=== PATIENT | male | born 1975 | race Caucasian/White ===

== ENCOUNTER 2023-11-18 18:09 | Emergency (ER) | payer OTHER ==
[~2023-11-18] VITALS: Ht 188 cm; Wt 72.6 kg
[~2023-11-18 18:09] MED LIST: ATOM40CA PO; MIRT-119 PO
[2023-11-18] MEDS ORDERED: NAPR-1009 PO (21:03)
[2023-11-18] MEDS ORDERED: CYCL10TA9 PO (21:03)
[2023-11-18] MEDS ORDERED: NAPROXEN 250 MG TABLET ONE ×2 (21:04→21:09)
[2023-11-18] MEDS ORDERED: CYCLOBENZAPRINE 10 MG TABLET ONE ×2 (21:04→21:09)
[2023-11-18] MEDS: NAPROXEN 250 MG TABLET PO ONE (21:10)
[2023-11-18] MEDS: CYCLOBENZAPRINE 10 MG TABLET PO ONE (21:10)
[2023-11-18 21:56] VITALS: BP 129/81; TEMP 98; O2SAT 98
== END 2023-11-18 21:57 | disposition home or self-care (01) ==
LOC: ER 18:15
DX: G89.29 Other chronic pain (principal); M54.50 Low back pain, unspecified; Z90.89 Acquired absence of other organs; Z88.0 Allergy status to penicillin